=== PATIENT | female | born 1935 | race Caucasian/White ===

== ENCOUNTER 2017-02-05 15:10 | Emergency (ER) | payer MEDICARE, OTHER ==
[~2017-02-05 15:10] MED LIST: ACET500CAP PO; ALPHAGAN OPH; ALPHAGAN P0.1 % OPH; APRES50 PO; ASA5GR PO; ASAB PO; B COMPLETE PO; BETIMOL0.5 % OP; BIDIL20/37 PO; C1 PO; CARDCD300 PO; CLARIT10 PO; COLCH6 PO; COREG25 PO; DEMA100 PO; DETROLLA2 PO; DIOV160 PO; FLECTOR1.3 % TOP; GARLIC SUPPLEMENT PO; GARLIFE PO; HUMI PO; IRON; IRON325 MG PO; JANTOVEN1 MG PO; JANTOVEN2 MG PO; KLOR-CON M2020 MEQ PO; KLOR-CON-2525 MEQ PO; L40 PO; L80 PO; LEVEMIR SC; LEVOTHYROXIN25 MCG PO; LEVOTHYROXIN75 MCG PO; LOP25 PO; LORTAB 5 PO; MAGOX4 PO; METAMUCIL CAN7 OZ PO; MIRALAXPKT PO; MUCUS RELIEF OR; MYRBETRIQ25 MG PO; NEUR300 PO; NEUR400 PO; NEUR600 PO; NEXIUM40 PO; NITROSTAT0.4 MG SL; NORV5 PO; ORAPRED ODT10 MG OR; P10 PO; PLAVIX PO; PR25 PO; PRAV10 PO; PRIN10 PO; PROAIR HFA INH; PROAIRRESP INH; PROTONIX PO; SPIRO25 PO; STARLIX60 PO; STOOL SOFTEN100 MG PO; T PO; TIAZA1 PO; TIAZA3 PO; TRAVATAN OPH; TRAVATAN Z0.004 % OPH; ULTRAM50 PO; V5 PO; VIB50 PO; VIT D 3; VITAMIN D31000 UNIT PO; VITD PO; XALAT OPH; Z100 PO; Z300 PO; ZOCOR40 PO; ZOL100 PO; ZYRTEC ALLGY10 MG PO; [UNRECOGNIZED DRUG - OTHER]; [UNRECOGNIZED DRUG - OTHER] OPH
[2017-06-19] MEDS ORDERED: ZAROX2.5B PO (16:18)
[2017-06-19] MEDS ORDERED: SPIRO25 PO (16:18)
[2017-06-19] MEDS ORDERED: ACET500CAP PO (16:19)
[2017-06-21] MEDS ORDERED: ALPHAGAN OPH (17:02)
[2017-06-21] MEDS ORDERED: POLYMYXIN B/ OPH (17:03)
[2017-06-23] MEDS ORDERED: KENCR.1 TOP (14:26)
[2017-06-23] MEDS ORDERED: JANTOVEN1 MG PO (14:27)
== END 2017-02-05 15:25 | disposition home or self-care (01) ==
LOC: ER 15:10
DX: M54.42 Lumbago with sciatica, left side (principal); I10 Essential (primary) hypertension; E11.9 Type 2 diabetes mellitus without complications; Z95.1 Presence of aortocoronary bypass graft; Z88.5 Allergy status to narcotic agent; Z91.013 Allergy to seafood; Z79.52 Long term (current) use of systemic steroids; Z79.01 Long term (current) use of anticoagulants; Z79.899 Other long term (current) drug therapy
CPT/HCPCS: 99283; A9270-GY